=== PATIENT | female | born 1990 | race African-American/Black ===

== ENCOUNTER → 2020-11-09 | Outpatient (CLI) | payer MEDICAID ==
[2013-11-23 06:39] VITALS: BP 117/57
[~2020-11-09] MED LIST: [UNRECOGNIZED DRUG - REMARK]
--- NOTE | 2020-11-09 16:07 | RAD ---
EXAM: Obstetrics sonogram. HISTORY: Unsure dates. TECHNIQUE: Sonographic imaging of a gravid uterus was performed. COMPARISON: None. FINDINGS: The uterus measures 10.0 x 6.6 x 6.2 cm. There is a single intrauterine gestational sac wit h pole and yolk sac. The crown-rump length is 1.26 cm, corresponding with a gestational a ge of 7 weeks and 3 days. The due date is 06/25/2021. The heart rate is normal at 144 bpm. There is a normal-appearing yolk sac. The gestational sac is normal in configuration and location. The lef t ovary is surgically absent. The right ovary is unremarkable. IMPRESSION: Single intrauterine fetus with normal heart rate and gestational age of 7 weeks and 3 day s. Electronically signed by: Rose Schultz MD (11/09/2020 4:05 PM) [id number]
== END ==
LOC: US 15:01
PROVIDERS: ATTEND Obstetrics & Gynecology
DX: O00.01 Abdominal pregnancy with intrauterine pregnancy (principal); Z3A.01 Less than 8 weeks gestation of pregnancy
CPT/HCPCS: 76801